=== PATIENT | male | born 1970 | race Two or more races ===

== ENCOUNTER 2017-06-05 08:20 | Emergency (ER) | payer BC ==
[~2017-06-05] VITALS: Ht 180.3 cm; Wt 93.0 kg
[2017-06-05 08:20] VITALS: BP 125/80
== END 2017-06-05 08:46 | disposition home or self-care (01) ==
LOC: ER 08:23
DX: J02.0 Streptococcal pharyngitis (principal); F10.10 Alcohol abuse, uncomplicated
CPT/HCPCS: A4606; Z7610

== ENCOUNTER 2024-07-14 11:02 | Emergency (ER) | payer BC, OTHER ==
[~2024-07-14] VITALS: Ht 180.3 cm; Wt 97.5 kg
[2024-07-14 11:10] VITALS: BP 114/80; TEMP 98.3; O2SAT 95
[2024-07-14] MEDS ORDERED: AMOX-430 PO (11:44)
[2024-07-14] MEDS ORDERED: IBUP-1955 PO (11:44)
== END 2024-07-14 11:48 | disposition home or self-care (01) ==
LOC: ER 11:06
DX: J02.9 Acute pharyngitis, unspecified (principal)